=== PATIENT | female | born 1985 | race Caucasian/White ===

== ENCOUNTER 2023-11-20 16:12 | Emergency (ER) | payer BC, SELFPAY ==
[2023-11-20] VITALS (10 sets, daily range): BP systolic 108–135; BP diastolic 71–91; PULSE 104–128; RESP 14–20; TEMP 37.5; O2SAT 100; BMI 22.8
--- NOTE | 2023-11-20 16:20 | PC.NURSE ---
Dr. Phillips at bedside performing POCUS.
--- OUTSIDE RECORDS SUMMARY | 2023-11-20 16:26 | XMS_ITS | Patient Health Record ---
Author Name Unknown Organization [facility] [place] Address [address] [place] [address] Care Team Providers Care Cartographic Engineer Name Role Phone [facility] Primary Care Provider Unavailable Cira [id number], [id number] Ronald Unavailable [phone] Allergies Allergen (clinical drug ingredient) Drug/Non Drug Allergy documented on EMR Reaction Allergy Type Onset Date Status azithromycin Azithromycin rash Drug Allergy A ctive Reason For Referral No Information Medications Medication SIG (Take, Route, Fr equency, Duration) Notes Start Date End Date Status NexIUM 20 MG 1 capsule Orally Once a day Active Carafate 1 GM/10ML 10 mL 1 hour before meals and at bedtime on an empty stomach Orally Four times a day Active Gabapentin 600 MG 1 tablet Orally Once a day Active Suboxone 8-2 MG 1 film under the ton fanta and allow to dissolve Sublingual Once a day Active Social History Tobacco Use: Social History Observation Description Date Details (start date - stop date) Never Smoker NA - NA Tobacco Control (Standard) Question Answer Notes Tobacco use: Nonsmoker AUDIT-C (Standard) Question Answer Notes Did you have a drink containing alcohol in the p ast year? No Points 0 Interpretation Negative Vital Signs Temperature 98.7 degrees Fahrenheit 09/26/2023 Respiratory Rate 18 /min 09/26/2023 Height 64 in 09/26/2023 Weight 126 lbs 09/26/2023 BMI 21.63 kg/m2 09/26/2023 Encounters Encounter Location Date Provider Diagnosis [address] [id number] 09/26/2023 Ronald Denis Allergic dermatitis L23.9 Assessments Encounter Date Diagnosis (ICD Code) Assessment Notes Treatment Notes Treatment Clinical Notes 09/26/2023 Allergic dermatitis (ICD-10 - L23.9) Instructed to avoid taking NSAIDs while taking prednisone. Plan Of Treatment No Information Insurance Providers Payer Name Payer Address Payer Phone Subscriber Number Group Number Insured Name Patient Relationship to Insured Coverage Start Date Coverage End Date [facility] [address] [place] [address] [id number] Leydi Mayorga Self - patient is the insured Medical (General) History Medical History History ICD Code gerd opioid dependency hx of stomach ulcers neuropathy Surgical History Surgery Date(Month/Year) ankle repair X 2 T & A gallbladder
--- OUTSIDE RECORDS SUMMARY | 2023-11-20 16:26 | XMS_ITS | Patient Health Record ---
Author Name Unknown Organization [facility] Billing Info Address [address] [place] [address] [place] [address] Care Team Providers Care Copy Operator Name Role Phone NATALIIA DELCID Unavailable [phone] Frank DRIVER, Dr Schmitt Unavailable Unavailabl e Allergies Allergen (clinical drug ingredient) Drug/Non Drug Allergy documented on EMR Reaction Allergy Type Onset Date Status azithromycin z pack (uncoded) rash/hives Allergy Active Reason For Referral No Information Medications Medication SIG (Take, Route, Frequency, Duration) Notes Start Date End Date Status Duloxetine HCl 30 MG Oral for 15 Active Buprenorphine HCl-Naloxone HCl 8-2 MG DISSOLVE 2 FILMS UNDER THE TONGUE EVERY DAY Sublingual for 28 Active Advil PM 200-38 MG 2 tablets at bedtime as needed Orally Once a day for 30 day(s) Not-Taking Excedrin Migraine 250-250-65 MG 2 tablets Orally Once a day for 30 day(s) Not-Taking Nexium 40 MG 1 capsule Orally Onc e a day for 30 day(s) Active Zofran 4 MG 1 tablet Orally Once a day for 30 day(s) Active Metoclopramide HCl 10 MG TAKE 1 TABLET B Y MOUTH THREE TIMES DAILY BEFORE MEALS Oral for 30 day(s) Active ZzzQuil 25 MG 1 capsule at bedtime as needed Orally Once a day for 30 day(s) Active Sucralfate 1 GM/10ML 10 ml on an empty stomach Orally QID for 90 days 03/10/2021 Active Immunizations Vaccine Route Administration Date Status Comme nts FLU (Past vaccine of unknown type) Unknown 05/19/2021 A dministered zCOVID-19 (MedClimate-SpreadsaveNTSelero P urple Cap Comirnaty) 12+yrs, NO PRES Unknown 05/19/2021 Administered Social History Tobacco Use: Social History Observation Description Date Details (start date - stop date) Current Smoker NA - NA Tobacco Status: Question Answer Notes Patient is a current every day smoker Problems Problem Type SNOMED Code ICD Code Onset Dates Problem Status W/U Status Risk Notes Problem 434395427 Gastroparesis (K31.84) Active confirmed Problem 91159119 Epigastric pain (R10.13) Active confirmed Problem 640091985 Abnormal weight loss (R63.4) Active confirmed Problem Migraine (16709795) Migraines (G43.909) Active confirmed Problem Pneumonia (122019248) Pneumonia (J18.9) Active confirmed Problem 769962722 History of pepti c ulcer disease (Z87.11) Active confirmed Problem 533596973 Partial gastric outlet obstruction (K31.1) Active confirmed Problem 009995516065478 History of parti al gastrectomy (Z90.3) Active confirmed Problem Hernia (601458202) Hernia (K46.9) Active confir med Problem 63570708 Nausea and vomiting, intractability of vomiting not specified, unspecified vomiting type (R11.2) Active confirmed Problem 70122750 Chronic gastric ulcer without hemorrhage and without perforation (K25.7) Active confirmed Problem 72717950 Esophageal dysphagia (R13.10) Active confirmed Problem 18560181 Recurrent peptic ulcer disease (K27.9) Active confirmed Problem 430323509 Gastroesophageal reflux disease, unspecified whether esophagitis present (K21.9) Active confirmed Plan Of Treatment No Information Insurance Providers Payer Name Payer Address Payer Phone Subscriber Number Group Number Insured Name Patient Relationship to Insured Coverage Start Date Coverage End Date [employer] NON-H[employer] [address] [place], [place] [id number] JIA BRANCH Spouse - patient is the spouse of the insured 9 Medical (General) History Medical History History ICD Code reflux ulcers History of peptic ulcer disease Z87.11 Esophageal dysphagia R13.10 Epigastric pain R10.13 Migraines G43.909 Hernia K46.9 Pneumonia J18.9 Surgical History Surgery Date(Month/Year) ankle surgery D&C x2 tonsillectomy EGD x2 Exploratory laparotomy with partial gastrectomy with loop gastrojejunal ostomy 04/16/2019 EGD with aspiration of stoma ch after CT scan showed moderate-severe distention of stomach 04/24/2019
--- NOTE | 2023-11-20 16:37 | XR_ITS ---
PROCEDURE INFORMATION: Exam: XR Chest Exam date and time: 11/20/2023 4:39 PM Age: 38 years old Clinical indication: Dyspnea TECHNIQUE: Imaging protocol: Radiologic exam of the chest. Views: 1 view. COMPARISON: No relevant prior studies available. FINDINGS: Lungs: Unremarkable. No consolidation. Pleural spaces: Unremarkable. No pleural effusion. No pneumothorax. Heart/Mediastinum: Unremarkable. No cardiomegaly. Bones/joints: Unremarkable for age. IMPRESSION: Negative chest exam.
--- NOTE | 2023-11-20 16:37 | PC.NURSE ---
called and spoke with Miranda in regards to having patients records faxed to our facility.
--- NOTE | 2023-11-20 16:40 | HMH.EDGENADL ---
Discharge Plan Disposition Patient Disposition: Home, Self-Care Prescriptions Prescriptions: New Eliquis 5 mg tablet 5 mg PO BID 90 Days Qty: 190 0RF Rx Instructions: please take 10 mg BID for 7 days followed by 5 mg BID for a total of 3 months Referrals Follow up/Referrals: Leola Ewing APRN [Primary Care Provider] - See instructions Activity Restrictions/Add. Instructions Additional Instructions/Restrictions: You have been found to have an extensive basilic vein superficial thrombophlebitis. Given the length of the clot and its proximity to the deep veins you are a candidate for anticoagulation. This likely will delay your scopes that you have scheduled soon. Please return to the emergency part with any vomiting of blood or black stools significant pain or other concerns. Also keep your follow-up appointments with gastroenterology at . 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 I would also recommend that you use Jonah wrap's in your lower extremities with elevation to improve your edema. Clinical Impressions Clinical Impression: Anasarca, Hypoalbuminemia, Superficial thrombophlebitis, Anemia Discharge ED Provider: Do Phillips General Adult HPI General Chief complaint: PAIN Stated complaint: Old IV site painful Time Seen by Provider: 11/20/23 16:16 Mode of Arrival: Ambulatory Source of Information: Patient Limitations: No Limitations Description of Symptoms (Recalled from ER Triage Doc. by RN): pt presents to ED c/o right forearm swelling and pain. pt reports she was discharged from [facility] yesterday where she was admitted for an UTI, swelling and low albumin. History of Present Illness HPI narrative: Patient is a 38-year-old female presenting primarily today with medial right upper extremity pain and swelling after recent IV and stay at [facility]. States she has had chronic extremity edema that is been worsening over the last year particular over the last several weeks. She has been extensively worked up and evaluated [facility] most recently having an MRI and a CT EEG that showed nonspecific bowel inflammation and thickening concerning for possible IBD. She has a scheduled endoscopy and colonoscopy early next month. She states when she was in [place] just a few days ago that she was diagnosed with a urinary tract infection however she denies any frequency urgency dysuria back pain or fever. She was prescribed some antibiotics that she has not yet picked up today. She states that she has gained 12 pounds over the last month which she describes as fluid. She was told that her albumin was 0.8 looking back at the [facility]'s labs she was normal 1 year ago and has slowly trended down most recently as low as 1.8 at . She also states she is severely dyspneic with any type of exertion. Has to sleep completely upright. She had an echo at [facility] which was normal she states. Related Data Previous Rx's Medication Instructions Recorded apixaban 5 mg tablet (Eliquis) 5 mg PO BID 90 days #190 tabs 11/20/23 Allergies Allergy/AdvReac Type Severity Reaction Status Date / Time azithromycin Allergy Verified 11/20/23 16:25 [facility] Disclaimer: The information contained in this section may have been updated after the patient was seen, as this information can be updated by other users. Social History Smoking Status: Current every day smoker alcohol intake: never current occupational status: other Travel in the last 8 weeks: None ROS Obtained: Yes All systems reviewed & no additional complaints except as documented Physical Exam General General appearance: alert Respiratory Respiratory exam: Present normal lung sounds bilaterally Cardiovascular Cardiovascular exam: Present tachycardia (Heart rate 06/22/1940 my exam) and other (There is diffuse whole body edema severe anasarca in all extremities) Extremities Exam Extremities exam: Present other (Right medial upper extremity is warm erythematous and edematous to the touch) Neurological Exam Neurological exam: Present alert and oriented X3 Medical Decision Making Brian Inquiry Pt receiving controlled substance: No Vital Signs: 11/20/23 16:13 11/20/23 16:17 11/20/23 16:30 Temperature 99.5 F Temperature Source Oral Pulse Rate 127 H 127 H Pulse Rate [Right Radial] 128 H Respiratory Rate 18 Blood Pressure 129/77 131/84 Blood Pressure [Right Arm] 129/77 Blood Pressure Mean 90 93 Blood Pressure Mean [Right Arm] 94 Blood Pressure Source [Right Arm] Automatic Cuff Blood Pressure Position [Right Arm] Sitting 02 Sat by Pulse Oximetry 100 100 100 Oxygen Delivery Method Room Air Room Air Room Air 11/20/23 17:30 11/20/23 18:00 11/20/23 18:46 Temperature Temperature Source Pulse Rate 108 H 104 H 110 H Pulse Rate [Right Radial] Respiratory Rate Blood Pressure 126/71 116/74 108/91 L Blood Pressure [Right Arm] Blood Pressure Mean 89 85 94 Blood Pressure Mean [Right Arm] Blood Pressure Source [Right Arm] Blood Pressure Position [Right Arm] 02 Sat by Pulse Oximetry 100 100 100 Oxygen Delivery Method Room Air Room Air Room Air 11/20/23 19:00 11/20/23 19:30 Temperature Temperature Source Pulse Rate 110 H 128 H Pulse Rate [Right Radial] Respiratory Rate 18 Blood Pressure 127/78 135/73 Blood Pressure [Right Arm] Blood Pressure Mean Blood Pressure Mean [Right Arm] Blood Pressure Source [Right Arm] Blood Pressure Position [Right Arm] 02 Sat by Pulse Oximetry 100 100 Oxygen Delivery Method Room Air Lab Data Lab results reviewed: Yes I reviewed the patient's lab results. Lab Results 11/20/23 16:40: VBG pH 7.24 L, VBG pCO2 60.1 H, VBG pO2 34.9, VBG HCO3 25.4, VBG Total CO2 27.2 H, VBG O2 Saturation 56.9, VBG Base Excess -2.0, VBG Lactic Acid 2.6 H 11/20/23 17:30: WBC 13.1 H, RBC 4.09 L, Hgb 8.5 L, Hct 28.8 L, MCV 70.4 L, MCH 20.8 L, MCHC 29.6 L, RDW 17.7 H, Plt Count 497 H, MPV 8.1, Neut % (Auto) 51.6, Lymph % (Auto) 41.4, [place] % (Auto) 5.5, Eos % (Auto) 0.4, Baso % (Auto) 1.1, Neut # (Auto) 6.8, Lymph # (Auto) 5.4 H, Valencia # (Auto) 0.7, Eos # (Auto) 0.1, Baso # (Auto) 0.2, PT 11.1, INR 0.99, APTT 27.1, D-Dimer 1.20 H, Sodium 137, Potassium 4.3, Chloride 106, Carbon Dioxide 31 H, Anion Gap 4.3 L, BUN 13, Creatinine 0.70, Estimated Creat Clear 103, Estimated GFR 93, Est GFR ( Amer) 113, Glucose 85, Calcium 6.8 L, Total Bilirubin < 0.1 L, AST 64 H, ALT 48, Alkaline Phosphatase 192 H, Troponin I < 0.01, C-Reactive Protein 46.6 H, NT-Pro-B Natriuret Pep 141 H, Total Protein 4.3 L, Albumin 1.4 L, Globulin 2.9, Albumin/Globulin Ratio 0.5 L, TSH 2.22 11/20/23 18:35: Urine Color Yellow, Urine Appearance Clear, Urine pH 6.0, Ur Specific [place] 1.025, Urine Protein Negative, Urine Glucose (UA) Negative, Urine Ketones Negative, Urine Blood Negative, Urine Nitrate Negative, Urine Bilirubin Negative, Urine Urobilinogen 0.2, Ur Leukocyte Esterase Negative, Urine WBC 3-5, Ur Squamous Epith Cells 3-5, Urine Bacteria Trace, Urine Mucus 1+ 11/20/23 17:30 11/20/23 17:30 Orders (Tests/Meds): ED MEDICATIONS Generic Name Dose Route Start Last Admin Trade Name Freq PRN Reason Stop Dose Admin Apixaban 10 mg 11/20/23 19:52 Apixaban 5mg Tablet PO 11/20/23 19:53 ONCE ONE ORDERS Category Date Time Status CXR --portable [XR chest portable] Stat Exams 11/20/23 16:37 Completed POCUS Point of Care (ER Only) Stat Exams 11/20/23 16:25 Completed BNP [NT Pro Brain Natriuretic Pep.] Stat Lab 11/20/23 17:30 Completed CBC w/Auto Diff [Complete Blood Count Auto Diff] Stat Lab 11/20/23 17:30 Completed CMP [Comprehensive Metabolic Panel] Stat Lab 11/20/23 17:30 Completed CRP [C-Reactive Protein] Stat Lab 11/20/23 17:30 Completed D-Dimer Stat Lab 11/20/23 17:30 Completed PT/PTT Stat Lab 11/20/23 17:30 Completed TSH [Thyroid Stimulating Hormone] Stat Lab 11/20/23 17:30 Completed Trop I [Troponin I] Stat Lab 11/20/23 17:30 Completed Troponin I Q3H Lab 11/20/23 19:45 Ordered Troponin I Q3H Lab 11/20/23 22:45 Ordered UA [Urinalysis and Microscopic] Stat Lab 11/20/23 18:35 Completed Blood Culture Stat Micro 11/20/23 17:40 Received Venous Blood Gas Stat RT 11/20/23 16:40 Completed Medical Decision Narrative: [id number] presented today with diffuse and severe whole body edema likely secondary to severe hypoalbuminemia that she is aware of. 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 Other things in the differential be heart failure, liver disease, kidney disease such as nephrotic syndrome etc. She does appear to have a soft tissue infection of the medial aspect of her right upper extremity which may also just be edema secondary to local extravasation of recent IV use. Reassessment bedside ultrasound confirms extensive superficial thrombophlebitis along the basilic vein. Given its length and its proximity to deep veins she will require anticoagulation. Awaiting the remainder of her workup to decide final disposition. I do not suspect she has a soft tissue infection there was cobblestoning in this region which is nonspecific. Reassessment 554 I was able to get discharge summary from [facility] they did a CT scan which showed diffuse colonic wall thickening trace ascites some abdominal lymphadenopathy as well as a small pleural effusion. This is consistent with as workup. Her albumin there was 0.8 which is significantly worse than it was at . She had an echo that was done at [facility] which was unremarkable. No further intervention was done such as discussion about dietary changes etc. No alternative explanation for hypoalbuminemia was identified. Given the fact the patient's respiratory status is significantly worse and she is 12 pounds up from her dry weight continues to worsen also has now a superimposed condition, superficial thrombophlebitis but the patient would benefit most from being in the inpatient setting given the chronicity and severity of her symptoms today. Reassessment 7:57 PM discussion with this patient regarding all of her conditions that are ongoing and worsening and failing outpatient therapy. Patient was very concerned that if she were transferred to that her care would not be expedited. For that reason we decided to call [facility] I spoke with Dr. Ulrich and then I subsequently spoke with Dr. Garcia who is on-call for gastroenterology and they refused the patient given her extensive workup at . I subsequently spoke with Dr. Barreto at transfer center. I spoke with him about the size and location of this basilic vein superficial thrombophlebitis and the fact that this is high risk from an embolization standpoint and would require anticoagulation. This will likely delay her procedures that she has upcoming. For this reason he states that he would likely be very low yield to get her transferred as it is unlikely that she would have any type of emergent intervention with gastroenterology which I did not disagree with. I spoke with the patient further about this and she is okay going home. Her labs appear to be at baseline maybe a little bit better than they were in [place]. 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 She will Jonah wrap her lower extremities. She was initiated on Eliquis. And return precautions emphasized regarding bleeding. She is very aware of this she also will chat with her GI clinic and tell them about her ED visit. She will follow-up with him on the thyroid as previously instructed to discuss her management further. Procedures Miscellaneous Procedure Procedure Performed: Limited right upper extremity venous duplex ultrasound Indication right upper extremity swelling Findings Deep veins are compressible and have normal augmentation however her basilic vein is completely thrombosed along its duration along the entire medial aspect of the right upper extremity measuring about 10 cm in length no augmentation or compressibility in this region. Summary Superficial thrombophlebitis throughout the entire basilic vein in the right upper extremity on the medial aspect of the right upper arm Images were saved and adequate Critical Care Critical Care Time Critical Care Time: Yes Attestation: On 11/20/23, the high probability of a clinically significant, sudden or life threatening deterioration of the following system(s) required my full and direct attention, intervention and personal management. The time I documented below is in addition to time spent performing reported procedures but includes the following listed in this critical care notation. Total Time Total Critical Care Time: 35
[2023-11-20 17:39] LABS: VBG HCO3 25.4 mmol/L (23-30); VBG Oxygen Saturation 56.9 % (50-70); VBG PH 7.24 mmol/L (7.31-7.41); VBG PO2 34.9 mmol/L (28-40); VBG Total CO2 27.2 mmol/L (23-27)
[2023-11-20 17:41] LABS: Lactate Venous 2.6 mmol/L (0.4-2.0); VBG PCO2 60.1 mmol/L (35-51)
[2023-11-20 17:53] LABS: Basophils # 0.2 K/mm3 (0-0.2); Basophils % 1.1 % (0.1-2.0); Eosinophils # 0.1 K/mm3 (0.0-0.4); Eosinophils % 0.4 % (0.1-12.0); Hematocrit 28.8 % (37.0-47.0); Hemoglobin 8.5 g/dL (12.2-16.2); Lymphocytes # 5.4 K/mm3 (0.7-4.5); Lymphocytes % 41.4 % (10-50); Mean Corpuscular HGB Conc 29.6 g/dL (31.8-35.4); Mean Corpuscular Hemoglobin 20.8 pg (27.0-31.2); Mean Corpuscular Volume 70.4 fl (81-99); Mean Platelet Volume 8.1 fl (7.4-10.4); Monocytes # 0.7 K/mm3 (0.1-1.0); Monocytes % 5.5 % (1.7-9.3); Neutrophils # 6.8 K/mm3 (1.8-7.8); Neutrophils % 51.6 % (37.0-80.0); Platelet Count 497 K/mm3 (142-424); Red Blood Count 4.09 M/mm3 (4.20-5.40); Red Cell Distribution Width 17.7 % (11.5-17.5); White Blood Count 13.1 K/mm3 (4.8-10.8)
[2023-11-20 17:59] LABS: Alanine Aminotransferase 48 U/L (12-78); Albumin Level 1.4 g/dl (3.5-5.0); Albumin/Globulin Ratio 0.5 (1.1-1.8); Alkaline Phosphatase 192 U/L (38-126); Anion Gap 4.3 mEq/L (5-15); Aspartate Amino Transferase 64 U/L (14-36); Blood Urea Nitrogen 13 mg/dl (7-17); Calcium 6.8 mg/dl (8.4-10.2); Carbon Dioxide 31 mmol/L (22.0-30.0); Chloride 106 mmol/L (98-107); Creatinine Clearance Estimated 103 mL/min (50-200); Estimated Glomerular Filt Rate 93 ml/min (>60); GFR (African American) 113 ML/MIN (>60); Globulin 2.9 g/dL (1.3-3.2); Glucose 85 mg/dl (74-100); Potassium 4.3 mmoL/L (3.5-5.1); Sodium 137 mmol/L (136-145); Total Protein,Serum 4.3 g/dl (6.3-8.2)
[2023-11-20 18:04] LABS: C-Reactive Protein 46.6 mg/L (0-4)
[2023-11-20 18:05] LABS: Bilirubin,Total < 0.1 mg/dl (0.2-1.3)
[2023-11-20 18:11] LABS: NT Pro Brain Natriuretic Pep. 141 pg/mL (0-125)
[2023-11-20 18:30] LABS: Activated Partial Thrombo Time 27.1 seconds (22.8-30.6); INR 0.99 (0.9-1.1); Prothrombin Time 11.1 seconds (10.1-12.5)
[2023-11-20 18:32] LABS: Thyroid Stimulating Hormone 2.22 uIU/mL (0.465-4.68)
[2023-11-20 18:37] LABS: Troponin I < 0.01 ng/ml (0.00-0.034)
[2023-11-20 18:42] LABS: Microscopic, Urine URINE MICROSCOPIC (MICROSCOPIC)
[2023-11-20 18:44] LABS: Appearance,Urine CLEAR (Clear); Bilirubin,Urine Negative (Negative); Blood, Urine Negative (Negative); Color,Urine YELLOW (Yellow); Glucose,Urine (UA) Negative (Negative); Ketones,Urine Negative (Negative); Leukocyte Esterase,Urine Negative (Negative); Nitrate,Urine Negative (Negative); Protein,Urine Negative (Negative); Specific Gravity, Urine 1.025 (1.005-1.030); Urobilinogen,Urine 0.2 EU/dl (0.2)
--- NOTE | 2023-11-20 18:45 | PC.NURSE ---
Call placed to [facility] for possible transfer.
--- NOTE | 2023-11-20 18:49 | PC.NURSE ---
Dr. Phillips speaking with Dr. Ulrich with [facility].
[2023-11-20 18:55] LABS: Bacteria,Urine Trace /lpf
[2023-11-20 18:56] LABS: Mucus,Urine 1+ /lpf
--- NOTE | 2023-11-20 19:24 | PC.NURSE ---
Dr Phillips speaking with Dr Barreto at [facility] at this time.
--- NOTE | 2023-11-20 19:27 | PC.NURSE ---
Rounded on patient no needs at this time.
[2023-11-20] MEDS: APIXABAN 5MG TABLET 10 MG PO (20:07)
== END 2023-11-20 20:14 | disposition home or self-care (01) ==
PROVIDERS: Emergency Provider Student in an Organized Health Care Education/Training Program; PCP Nurse Practitioner Family
DX: I82.611 Acute embolism and thrombosis of superficial veins of right upper extremity (principal); M79.601 Pain in right arm; E88.09 Other disorders of plasma-protein metabolism, not elsewhere classified; R60.1 Generalized edema; D64.9 Anemia, unspecified; F17.210 Nicotine dependence, cigarettes, uncomplicated
CPT/HCPCS: 71045; 80053; 81001; 82803; 83880; 84443; 84484; 85025; 85378; 85610; 85730; 86140; 87040; 99285